=== PATIENT | male | born 2000 | race Caucasian/White ===

== ENCOUNTER 2021-02-04 13:05 | Emergency (ER) | payer OTHER ==
[~2021-02-04] VITALS: Ht 170.2 cm; Wt 73.5 kg
--- NOTE | 2021-02-04 16:48 | REP ---
INDICATION: boxer fx. COMPARISON: None. TECHNIQUE: Four views FINDINGS: There is a comminuted fracture of the distal diaphysis of the 5th metacarpal with anterior angulation. IMPRESSION: Boxer's fracture <Electronically signed by Pantera Kinney > 02/04/21 6209
[2021-02-04 19:35] VITALS: BP 121/82
== END 2021-02-04 19:36 | disposition home or self-care (01) ==
LOC: M ED 13:05
DX: S62.306A Unspecified fracture of fifth metacarpal bone, right hand, initial encounter for closed fracture (principal); W51.XXXA Accidental striking against or bumped into by another person, initial encounter; Y92.410 Unspecified street and highway as the place of occurrence of the external cause; Y93.9 Activity, unspecified; Y99.9 Unspecified external cause status

== ENCOUNTER 2025-03-12 07:56 | Emergency (ER) | payer OTHER ==
[~2025-03-12] VITALS: Ht 170.2 cm; Wt 73.2 kg
[2025-03-12 09:53] LABS: APPEARANCE, URINE CLEAR (CLEAR); BACTERIA, URINE AUTO NEGATIVE (NEGATIVE); BASO # 0.1 10^3/uL (0.0-0.2); BASO % 0.7 % (0.0-1.0); BILIRUBIN, URINE AUTO NEGATIVE (NEGATIVE); BLOOD, URINE BLOOD NEGATIVE (NEGATIVE); EOS # 0.2 10^3/uL (0.0-0.5); EOS % 1.5 % (0.0-3.0); GLUCOSE, URINE (UA) AUTO NEGATIVE (NEGATIVE); KETONE, URINE AUTO NEGATIVE (NEGATIVE); LEUKOCYTE ESTERASE, URINE AUTO NEGATIVE (NEGATIVE); LYMPH # 2.1 10^3/uL (1.5-5.0); LYMPH % 18.7 % (24.0-44.0); MONO # 0.7 10^3/uL (0.0-0.8); MONO % 6.4 % (2.0-8.0); MUCUS, URINE SMALL (NEGATIVE); NEUTROPHILS # 8.1 10^3/uL (1.5-8.5); NEUTROPHILS % 72.5 % (36.0-66.0); NITRITE, URINE AUTO NEGATIVE (NEGATIVE); PLATELET COUNT, AUTOMATED 234 10^3/uL (150-450); PROTEIN, URINE AUTO NEGATIVE (NEGATIVE); RBC, URINE AUTO 0 /HPF (0-3); SPECIFIC GRAVITY URINE AUTO 1.024 (1.002-1.035); SQUAMOUS EPITHELIAL CELL UR AU 0 /HPF (0-6); UROBILINOGEN, URINE AUTO 0.2 mg/dL (0.0-2.0); WBC, URINE AUTO 1 /HPF (0-3)
[2025-03-12 10:24] LABS: ALT/SGPT 13.0 U/L (7.0-40); AST/SGOT 20.0 U/L (<34)
[2025-03-12 10:37] LABS: CPK CREATINE PHOSPHOKINASE 117.0 U/L (46-171)
[2025-03-12] MEDS: NS (Normal Saline) 0.9% 1,000 ML IV ONE (10:42)
[2025-03-12 12:12] VITALS: BP 117/62; TEMP 98.5; O2SAT 96
== END 2025-03-12 12:29 | disposition home or self-care (01) ==
LOC: M ED 07:56
DX: M79.10 Myalgia, unspecified site (principal)